=== PATIENT | male | born 1940 | race Caucasian/White ===

== ENCOUNTER 2017-02-18 11:02 | Emergency (ER) | payer OTHER ==
[~2017-02-18] VITALS: Ht 165.1 cm; Wt 88.7 kg
[2017-02-18] MEDS ORDERED: VALIUM2 MG PO (12:42)
[2017-02-18] MEDS ORDERED: NORCO 5/3251 TABLET PO (12:42)
[2017-02-18 12:58] VITALS: BP 170/92
== END 2017-02-18 12:59 | disposition home or self-care (01) ==
LOC: EME 11:02
DX: M54.41 Lumbago with sciatica, right side (principal); R60.0 Localized edema; Z86.718 Personal history of other venous thrombosis and embolism
CPT/HCPCS: 72100; 99281; 99284; J1885

== ENCOUNTER 2017-09-10 02:49 | Inpatient (IN) | payer OTHER ==
[~2017-09-10] VITALS: Ht 167.6 cm; Wt 98.5 kg
[~2017-09-10 02:49] MED LIST: ELIQUIS5 MG PO; LOSARTAN POTAS100 MG PO; METFORMIN HCL1000 MG PO; NORCO 5/3251 TABLET PO; PIOGLITAZONE HC30 MG PO; ROSUVASTATIN CA20 MG PO; VALIUM2 MG PO
[2017-09-10 03:11] LABS: HEMATOCRIT 35.2 % (38.0-50.0); HEMOGLOBIN 11.2 G/DL (12.5-16.6); MCHC 31.8 G/DL (30.0-36.0); MCV 97.5 FL (86-99); PLATELET COUNT 153 K/uL (156-360); RBC DIS.WIDTH-CV 14.5 % (11.8-14.6); RBC DIS.WIDTH-SD 52.3 % (39-53); RED BLOOD COUNT 3.61 M/uL (4.00-5.50)
[2017-09-10 03:22] LABS: CHLORIDE 108 mEq/L (99-109); POTASSIUM 4.3 mEq/L (3.7-5.4); SODIUM 144 mEq/L (136-147)
[2017-09-10 03:23] LABS: GLUCOSE 164 mg/dL (70-99)
[2017-09-10 03:27] LABS: CREATININE 1.5 mg/dL (0.6-1.3); GFR ESTIMATE (CALCULATED) 48 mL/min/ (58.99-99999)
[2017-09-10 03:28] LABS: UREA NITROGEN (BUN) 26 mg/dL (9-23)
[2017-09-10 03:33] LABS: TROP-I INTERPRETATION NEGATIVE; TROPONIN-I 0.02 ng/mL (0.0-0.30)
[2017-09-10 05:30] VITALS: BP 110/53
[2017-09-10 07:54] VITALS: BP 122/56
[2017-09-10 09:27] LABS: TROPONIN-I 0.88 ng/mL (0.0-0.30)
[2017-09-10 09:28] LABS: TROP-I INTERPRETATION POSITIVE
[2017-09-10 11:00] VITALS: BP 134/60
[2017-09-10] MEDS ORDERED: CYANOCOBAL1000 MCG/2 IM (11:53)
[2017-09-10 15:38] LABS: TROP-I INTERPRETATION POSITIVE; TROPONIN-I 1.28 ng/mL (0.0-0.30)
[2017-09-10 18:01] VITALS: BP 134/66
[2017-09-10 19:23] VITALS: BP 142/65
[2017-09-10 21:48] LABS: INTER. NORMALIZED RATIO 1.4
[2017-09-10 21:50] LABS: PTT 29.5 SEC (25-37)
[2017-09-11 00:08] VITALS: BP 93/44
[2017-09-11 04:27] LABS: BASOPHIL (%) 0.2 % (0-1); EOSINOPHIL (%) 1.9 % (0-5); EOSINOPHIL COUNT 0.2 K/uL (0-0.3); HEMATOCRIT 30.9 % (38.0-50.0); HEMOGLOBIN 9.9 G/DL (12.5-16.6); IMMATURE GRANULOCYTE (%) 0.6 % (0.0-0.7); LYMPHOCYTE (%) 39.9 % (15-42); LYMPHOCYTE COUNT 3.3 K/uL (1.0-2.8); MCV 96.9 FL (86-99); MONOCYTE (%) 11.1 % (3-12); MONOCYTE COUNT 0.9 K/uL (0-0.8); NEUTROPHIL (%) 46.3 % (45-76); NEUTROPHIL COUNT 3.9 K/uL (1.8-6.4); PLATELET COUNT 124 K/uL (156-360); RBC DIS.WIDTH-CV 14.6 % (11.8-14.6); RBC DIS.WIDTH-SD 51.5 % (39-53); RED BLOOD COUNT 3.19 M/uL (4.00-5.50); WHITE BLOOD COUNT 8.4 K/uL (4.1-10.2)
[2017-09-11 04:29] LABS: INTER. NORMALIZED RATIO 1.3
[2017-09-11 04:30] VITALS: BP 110/59
[2017-09-11 04:36] LABS: PTT 82.5 SEC (25-37)
[2017-09-11 04:44] LABS: CHLORIDE 108 mEq/L (99-109); POTASSIUM 4.8 mEq/L (3.7-5.4); SODIUM 144 mEq/L (136-147)
[2017-09-11 04:53] LABS: GLUCOSE 88 mg/dL (70-99)
[2017-09-11 04:55] LABS: CREATININE 1.4 mg/dL (0.6-1.3); GFR ESTIMATE (CALCULATED) 53 mL/min/ (58.99-99999)
[2017-09-11 04:56] LABS: UREA NITROGEN (BUN) 26 mg/dL (9-23)
[2017-09-11 09:45] VITALS: BP 139/66
[2017-09-11 10:24] VITALS: BP 133/62
[2017-09-11 10:53] LABS: INTER. NORMALIZED RATIO 1.3
[2017-09-11 10:57] LABS: PTT 110.1 SEC (25-37)
[2017-09-11] MEDS ORDERED: LIPITOR80 MG PO (14:32)
[2017-09-11] MEDS ORDERED: PLAVIX75 MG PO (14:32)
[2017-09-11 19:55] VITALS: BP 119/58
[2017-09-11 23:25] VITALS: BP 135/87
[2017-09-12 03:42] VITALS: BP 106/53
[2017-09-12 05:41] LABS: BASOPHIL (%) 0.3 % (0-1); EOSINOPHIL (%) 1.7 % (0-5); EOSINOPHIL COUNT 0.1 K/uL (0-0.3); HEMATOCRIT 29.8 % (38.0-50.0); HEMOGLOBIN 9.5 G/DL (12.5-16.6); IMMATURE GRANULOCYTE (%) 0.4 % (0.0-0.7); LYMPHOCYTE (%) 27.1 % (15-42); LYMPHOCYTE COUNT 2.1 K/uL (1.0-2.8); MCH 31.3 PG (29.0-34.0); MCHC 31.9 G/DL (30.0-36.0); MONOCYTE (%) 13.1 % (3-12); NEUTROPHIL (%) 57.4 % (45-76); NEUTROPHIL COUNT 4.5 K/uL (1.8-6.4); PLATELET COUNT 127 K/uL (156-360); RBC DIS.WIDTH-CV 14.5 % (11.8-14.6); RBC DIS.WIDTH-SD 51.8 % (39-53); RED BLOOD COUNT 3.04 M/uL (4.00-5.50); WHITE BLOOD COUNT 7.8 K/uL (4.1-10.2)
[2017-09-12 06:12] LABS: CHLORIDE 106 MEQ/L (99-109); CREATININE 1.5 MG/DL (0.6-1.3); GFR ESTIMATE (CALCULATED) 48 mL/min/ (58.99-99999); POTASSIUM 4.4 MEQ/L (3.7-5.4); SODIUM 142 MEQ/L (136-147); UREA NITROGEN (BUN) 22 mg/dL (9-23)
[2017-09-12 06:33] LABS: GLUCOSE 114 mg/dL (70-99)
[2017-09-12 08:46] VITALS: BP 139/68
[2017-09-12 11:22] LABS: HDL CHOLESTEROL 55 MG/DL (Desirable>=40); LDL CHOLESTEROL 52 mg/dL (Desirable<100); NON-HDL CHOLESTEROL 63 mg/dL (Desirable<160); TOTAL CHOLESTEROL 118 mg/dL (Desirable<200); TRIGLYCERIDES 55 MG/DL (Normal: <150)
[2017-09-12 13:05] VITALS: BP 135/63
[2017-09-12] MEDS ORDERED: LOPRESSOR25 MG PO (13:36)
[2017-09-12] MEDS ORDERED: NITROSTAT0.4 MG SL (13:36)
[2017-09-12] MEDS ORDERED: PLAVIX75 MG PO (14:10)
== END 2017-09-12 14:26 | disposition home or self-care (01) | DRG 282 ==
LOC: EME 02:49 → EDOF 04:16 → ENRESERV 04:18 → 5WEST 05:23 → ENRESERV 09-11 15:33 → 5WEST 09-11 15:33 → ENRESERV 09-11 16:09 → 4EAST 09-11 19:46
PROVIDERS: Emergency Medicine; Hospitalist; Physician Assistant
DX: I21.4 Non-ST elevation (NSTEMI) myocardial infarction (principal); I25.10 Atherosclerotic heart disease of native coronary artery without angina pectoris; I25.82 Chronic total occlusion of coronary artery; I12.9 Hypertensive chronic kidney disease with stage 1 through stage 4 chronic kidney disease, or unspecified chronic kidney disease; E11.22 Type 2 diabetes mellitus with diabetic chronic kidney disease; N18.3 Chronic kidney disease, stage 3 (moderate); I08.0 Rheumatic disorders of both mitral and aortic valves; E78.5 Hyperlipidemia, unspecified; D64.9 Anemia, unspecified; E66.9 Obesity, unspecified; Z68.35 Body mass index [BMI] 35.0-35.9, adult; Z79.01 Long term (current) use of anticoagulants; Z86.711 Personal history of pulmonary embolism; Z86.718 Personal history of other venous thrombosis and embolism; Z82.49 Family history of ischemic heart disease and other diseases of the circulatory system
CPT/HCPCS: 71045; 80048; 80061; 82948; 83880; 84484; 85025; 85027; 85347; 85610; 85730; 93005; 93306; 99281; 99284; C1750; C1769; C1887; C1894; J0461; J1644; J1815; J2250; J7030